=== PATIENT | male | born 1945 | race Caucasian/White ===

== ENCOUNTER → 2016-12-28 | Outpatient (CLI) | payer OTHER ==
--- NOTE | 2016-12-29 11:03 | DI ---
CT CHEST SCAN WITH IV CONTRAST, 12/28/2016 10:47 AM : Clinical History: Smoker. Weight loss. The history was confirmed to me by telephone conversation with the attending health care provider. Previous Exam: 10/22/2014. Scans are performed from the base of the neck to the lower lung bases with IV contrast. 75 ml of Isov ue 300 was injected IV. Sagittal and coronal images using non MIPS and MIPS technique are generated. The base of the neck and thoracic inlet are normal. There are no abnormal axillary, supraclavicular, mediastinal, or hilar nodes. The heart is normal. There are no coronary artery calcifications. The th oracic aorta is normal. The pulmonary arteries show mild pulmonary arterial hypertension but there is no evidence of pulmonary emboli or pulmonary emboli with infarction. The lungs are clear and there a re no pulmonary nodules or masses. Both adrenal glands, the spleen, and the visualized portions of th e liver and pancreas are normal. READING: There is mild pulmonary arterial hypertension without evidence of pulmonary embolism or pulmonary inf arction. The study is otherwise normal.
== END ==
LOC: CT 12:45
PROVIDERS: ATTEND Nurse Practitioner Family
DX: R63.4 Abnormal weight loss (principal); R53.83 Other fatigue; I27.2 Other secondary pulmonary hypertension; F17.200 Nicotine dependence, unspecified, uncomplicated
CPT/HCPCS: 71260